=== PATIENT | male | born 1950 | race Caucasian/White ===

== ENCOUNTER 2019-06-27 18:16 | Inpatient (IN) | payer MEDICARE, MEDICAID ==
[2019-06-29 00:40] VITALS: BP 146/84
[2019-06-29] MEDS ORDERED: Magnesium Hydroxide (MOM) 30 mL UDC PO PRN (00:41)
[2019-06-29] MEDS ORDERED: Maalox 30 mL Cup PO PRN (00:41)
--- NOTE | 2019-06-29 06:47 | Psychiatric Evaluation ---
DATE OF SERVICE: AGE: 69. SEX: Male. PHYSICIAN: Dr. Sumner. CHIEF COMPLAINT: Striking odd behavior. HISTORY OF PRESENT ILLNESS: The patient is a 69-year-old male with history of schizophrenia. The patient has been agitated and aggressive with the staff in [facility] where he lives and has been striking out and staff has been having difficulty redirecting him. Also, has been easily agitated and restless. Also, has been suspicious and paranoid. The patient is still in angry mood and agitated and difficulty redirecting him. PAST PSYCHIATRIC HISTORY: The patient has a history of schizophrenia. PAST MEDICAL HISTORY: The patient has history of type 2 diabetes mellitus, essential hypertension, muscle weakness and wasting, hyperlipidemia, cataract. SOCIAL HISTORY: The patient lives in [facility]. No known alcohol or drug use. ALLERGIES: No known allergies. MENTAL STATUS EXAMINATION: The patient appears older than his stated age. Irritable mood. Anxious. Easily agitated. The patient denies any hallucinations, but severely paranoid and delusional. The patient denies suicidal or homicidal ideations, but the patient has striking out behavior and easily agitated. The patient is alert and oriented to time, place, person and situation. Intact immediate, recent and remote memories. Poor insight and he does not know why he is in the hospital. Poor judgment and he was hitting and striking out at staff in the facility. Seems to be of average intelligence based on his verbal ability. ASSESSMENT: PRIMARY DIAGNOSES: Schizophrenic disorder, unspecified. Rule out schizoaffective disorder. MEDICAL DIAGNOSES: 1. Type 2 diabetes mellitus. 2. Hypertension. 3. Hyperlipidemia. TREATMENT PLAN: We will monitor the patient's behavior and condition closely. We will start individual as well as milieu psychotherapy. We will monitor psychotropic medications. ESTIMATED LENGTH OF STAY: 5-7 days. PATIENT'S STRENGTHS AND WEAKNESSES: The patient has supportive staff in the facility and he seems to be in relatively fair health. Weaknesses are his poor impulse control. AFTER DISCHARGE PLAN: Outpatient treatment and followup will continue as an outpatient. CRITERIA FOR DISCHARGE: The patient will not be aggressive and have better impulse control. [facility]# [id number]
[2019-06-29] MEDS: Multivitamin Tab PO SCH (08:55)
[2019-06-29] MEDS: Benztropine 1 MG TAB PO SCH ×2 (08:55→17:06)
--- NOTE | 2019-06-29 20:42 | History & Physical ---
ADMIT DATE: HISTORY OF PRESENT ILLNESS: The patient is a 69-year-old male with long history of hyperlipidemia, dementia, psychosis, admitted to [facility] under Dr. Sumner's service. The patient denies chest pain, shortness of breath, nausea, vomiting, fever or chills. PAST MEDICAL HISTORY: Significant for hyperlipidemia, psychosis and dementia. PAST SURGICAL HISTORY: No recent surgery. ALLERGIES: None. MEDICATIONS: Follow admission reconciliation. SOCIAL HISTORY: No smoking, no alcohol, no drug. FAMILY HISTORY: Noncontributory. REVIEW OF SYSTEMS: RENAL SYSTEM: No history of chronic renal disorder. CARDIOVASCULAR SYSTEM: No coronary artery disease. ENDOCRINE SYSTEM: No diabetes or thyroid problem. GASTROINTESTINAL SYSTEM: No upper or lower gastrointestinal bleed. NEUROLOGICAL SYSTEM: No seizure disorder. SKELETOMUSCULAR SYSTEM: No muscular dystrophy. HEMATOLOGICAL SYSTEM: No bleeding tendencies. RESPIRATORY SYSTEM: No asthma. GENITOURINARY: No dysuria or hematuria. PHYSICAL EXAMINATION: GENERAL: She is awake, alert. VITAL SIGNS: Temperature 97.4, heart rate 67, blood pressure 124/68. HEENT: Her pupils reacting equal to light and accommodation. Sclerae clear. NECK: Supple. Negative for lymphadenopathy, JVD or bruit. CHEST: Entry of air bilaterally normal. No rhonchi or wheezing. HEART: S1, S2 normal. No gallop rhythm. ABDOMEN: Soft, bowel sounds positive. EXTREMITIES: No edema. BACK: Normal vertebra. GENITALIA AND RECTAL: No complaint done by primary physician. SKIN: Intact. NEUROLOGIC: He is awake, alert, mildly confused. Cranial nerve 1: The patient is able to smell different odor. Cranial nerve 2: The patient is able to read printed page. Cranial nerve 3: The patient is able to move eyeball upward and outward. Cranial nerve 4: The patient is able to move eyeball inward and downward. Cranial nerve 5: The patient able to clench teeth, has normal sensation to forehead. Cranial nerve 6: The patient is able to move eyeball lateral on both sides. Cranial nerve 7: The patient is able to move eyebrow upwards on both sides. Cranial nerve 8: The patient able to hear finger rubs on both sides. Cranial nerve 9: The patient has a normal gag reflex. Cranial nerve 10: The patient able to move soft palate upward on each side. Cranial nerve 11: The patient able to shrink shoulder on both sides. Cranial nerve 12: The patient able to stick tongue straight. Motor system examination within normal limits. Deep tendon reflexes within normal limits. Coordination of muscle within normal limits. Sensory system, the patient has a normal pain, touch, position of the upper extremities. Gait is stable. ASSESSMENT: 1. Hyperlipidemia. 2. Dementia. 3. Psychosis. PLAN: The patient in the hospital under Dr. Sumner's service. Problem addressed during this hospitalization is psychosis. Medical problem addressed at discharge, hyperlipidemia. The patient is medically stable for activity. Thank you, Dr. Sumner for asking me to see your patient. The patient will follow up with primary physician upon discharge. The patient is a full code. JOB# [id number]
[2019-06-30] MEDS: Benztropine 1 MG TAB PO SCH ×2 (08:29→16:13)
[2019-06-30] MEDS: Multivitamin Tab PO SCH (08:29)
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
--- NOTE | 2019-06-30 18:17 | Internal Medicine Prog Note ---
Internal Medicine Subjective - Subjective Service Date: 06/30/19 Patient seen and examined:: without staff (HE IS DOING WELL) Patient is:: awake, verbal, ambulating, talking, confused Per staff patient has:: no adverse event, eating well, confused Internal Medicine Objective - Physical Exam Vitals and I&O: Vital Signs Temp 97.2 F 06/30/19 14:00 Pulse 84 06/30/19 14:00 Resp 20 06/30/19 14:00 BP 137/52 06/30/19 14:00 Pulse Ox 97 06/30/19 14:00 Intake & Output 06/29/19 06/30/19 06/30/19 18:59 06:59 18:59 Intake Total 120 Balance 120 Intake: Oral 120 Other: # Voids 1 # Bowel Movements 0 Active Medications: Current Medications Acetaminophen (Tylenol) 650 mg PO Q4H PRN PRN Reason: Pain (Mild 1-3) Stop: 08/28/19 00:40 Al Hydrox/Mg Hydrox/Simethicone (Maalox) 30 ml PO Q4HR PRN PRN Reason: GI DISTRESS Stop: 08/28/19 00:40 Aspirin (Ecotrin) 81 mg PO DAILY [facility] Stop: 08/28/19 08:59 Last Admin: 06/30/19 08:29 Dose: 81 mg Benztropine Mesylate (Cogentin) 1 mg PO BID [facility] Stop: 08/28/19 08:59 Last Admin: 06/30/19 16:13 Dose: 1 mg Donepezil HCl (Aricept) 10 mg PO HS [facility] Stop: 08/28/19 20:59 Last Admin: 06/29/19 20:57 Dose: 10 mg Lorazepam (Ativan) 0.5 mg PO Q4HR PRN; Protocol PRN Reason: Anxiety Stop: 07/29/19 00:40 Last Admin: 06/30/19 13:06 Dose: 0.5 mg Magnesium Hydroxide (Milk Of Magnesia) 30 ml PO HS PRN PRN Reason: Constipation Memantine (Namenda) 5 mg PO DAILY [facility] Stop: 08/28/19 08:59 Last Admin: 06/30/19 08:29 Dose: 5 mg Multivitamins/Vitamin C (Theragran) 1 tab PO DAILY [facility] Stop: 08/28/19 08:59 Last Admin: 06/30/19 08:29 Dose: 1 tab Olanzapine (Zyprexa) 2.5 mg PO BID [facility]; Protocol Stop: 08/29/19 08:59 Last Admin: 06/30/19 16:13 Dose: 2.5 mg Simvastatin (Zocor) 20 mg PO HS [facility]; Protocol Stop: 08/28/19 20:59 Last Admin: 06/29/19 20:56 Dose: 20 mg Valproate Sodium (Depakene) 500 mg PO BID [facility]; Protocol Stop: 08/29/19 08:59 Last Admin: 06/30/19 16:13 Dose: 500 mg Zolpidem Tartrate (Ambien) 5 mg PO HS PRN PRN Reason: Insomnia Stop: 08/28/19 00:40 Last Admin: 06/29/19 21:55 Dose: 5 mg General: demented HEENT: NC/AT, PERRLA, EOMI, anicteric sclerae, throat clear Neck: Supple, No JVD, No thyromegaly, +2 carotid pulse wo bruit, No LAD Lungs: CTAB Cardiovascular: RRR, Normal S1, Normal S2, without murmur Abdomen: soft, non-tender, non-distended Extremities: clear Neurological: no change Internal Medicine Assmt/Plan - Assessment Assessment: 1.HYPERLIPIDEMIA. 2.DEMENTIA. 3.PSYCHOSIS - Plan Plan: CONTINUE ON CURRENT MEDICATION AND DIET
[2019-07-01] MEDS: Multivitamin Tab PO SCH (08:51)
[2019-07-01] MEDS: Benztropine 1 MG TAB PO SCH ×2 (08:52→16:48)
--- NOTE | 2019-07-01 15:03 | General Progress Note ---
Subjective - Review of Systems Service Date: 07/01/19 Subjective: resting comfortably no distress Objective - Physical Exam Vitals and I&O: Vital Signs Temp 98.3 F 07/01/19 14:20 Pulse 60 07/01/19 14:20 Resp 20 07/01/19 14:20 BP 108/51 07/01/19 14:20 Pulse Ox 91 07/01/19 14:20 Intake & Output 06/30/19 07/01/19 07/01/19 18:59 06:59 18:59 Intake Total 1000 480 Balance 1000 480 Intake: Oral 1000 480 Other: # Voids 3 1 # Bowel Movements 1 Active Medications: Current Medications Acetaminophen (Tylenol) 650 mg PO Q4H PRN PRN Reason: Pain (Mild 1-3) Stop: 08/28/19 00:40 Al Hydrox/Mg Hydrox/Simethicone (Maalox) 30 ml PO Q4HR PRN PRN Reason: GI DISTRESS Stop: 08/28/19 00:40 Aspirin (Ecotrin) 81 mg PO DAILY [facility] Stop: 08/28/19 08:59 Last Admin: 07/01/19 08:51 Dose: 81 mg Benztropine Mesylate (Cogentin) 1 mg PO BID [facility] Stop: 08/28/19 08:59 Last Admin: 07/01/19 08:52 Dose: 1 mg Donepezil HCl (Aricept) 10 mg PO HS [facility] Stop: 08/28/19 20:59 Last Admin: 06/30/19 20:55 Dose: 10 mg Lorazepam (Ativan) 0.5 mg PO Q4HR PRN; Protocol PRN Reason: Anxiety Stop: 07/29/19 00:40 Last Admin: 07/01/19 08:52 Dose: 0.5 mg Magnesium Hydroxide (Milk Of Magnesia) 30 ml PO HS PRN PRN Reason: Constipation Memantine (Namenda) 5 mg PO DAILY [facility] Stop: 08/28/19 08:59 Last Admin: 07/01/19 08:52 Dose: 5 mg Multivitamins/Vitamin C (Theragran) 1 tab PO DAILY [facility] Stop: 08/28/19 08:59 Last Admin: 07/01/19 08:51 Dose: 1 tab Olanzapine (Zyprexa) 2.5 mg PO BID [facility]; Protocol Stop: 08/29/19 08:59 Last Admin: 07/01/19 08:51 Dose: 2.5 mg Simvastatin (Zocor) 20 mg PO HS [facility]; Protocol Stop: 08/28/19 20:59 Last Admin: 06/30/19 20:55 Dose: 20 mg Valproate Sodium (Depakene) 500 mg PO BID [facility]; Protocol Stop: 08/29/19 08:59 Last Admin: 07/01/19 08:51 Dose: 500 mg Zolpidem Tartrate (Ambien) 5 mg PO HS PRN PRN Reason: Insomnia Stop: 08/28/19 00:40 Last Admin: 06/30/19 20:55 Dose: 5 mg General: No acute distress HEENT: Atraumatic, PERRLA Neck: Supple, JVD Cardiovascular: Regular rate, Normal S1, Normal S2 Lungs: Clear to auscultation Abdomen: Bowel sounds Assessment/Plan - Assessment Assessment: 1.HYPERLIPIDEMIA. 2.DEMENTIA. 3.PSYCHOSIS - Plan Plan: continue current treatment Nutritional Asmnt/Malnutr-PDOC - Dietary Evaluation Malnutrition Findings (Please click <Entered> for more info): Nutritional Asmnt/Malnutrition Start: 07/01/19 09: 03 Text: Status: Complete Freq: Protocol: Document 07/01/19 09:03 [facility] (Rec: 07/01/19 09:18 [facility] SABA- FNS1) Nutritional Asmnt/Malnutrition Patient General Information Nutritional Screening Moderate Risk Diagnosis Psychosis Pertinent Medical Hx/Surgical Hx Hyperlipidemia, dementia, psychosis. Subjective Information Current diet order provides 2230 kcal, 107gm protein and patient is eating ~75% of meals, eating ~1650kcal, 80gm protein meeting 100% of estimated nutrient needs. Tolerating current diet order. Current Diet Order/ Nutrition Support Cardiac, no added sodium Patient / S.O Not Indicated Pertinent Medications maalox, MOM, Theragran Pertinent Labs No current labs Nutritional Hx/Data Height 1.65 m Height (Calculated Centimeters) 165.1 Current Weight (lbs) 71.214 kg Weight (Calculated Kilograms) 71.2 Weight (Calculated Grams) 11199.0 [place] Body Weight 136 % [place] Body Weight 115 Body Mass Index (BMI) 26.1 Recent Weight Change No Weight Status Overweight GI Symptoms GI Symptoms None Last BM 06/30 x 1 Difficult in: None Food Allergies No Cultural/Ethnic/Restoration Belief none indicated Usual diet at home regular Skin Integrity/Comment: Varinder 22, Intact Current %PO Good (75-100%) Estimated Nutritional Goals BEE in Kcals: Using Current wt Calories/Kcals/Kg 64.2kg 25-30 kcal/kg Kcals Calculated ~7954-3192 kcal/day Protein: Using Current wt Protein g/kgm/kg Protein Calculated ~65gm/day Fluid: ml ~9889-2709 ml/day Nutritional Problem No current Nutrition Prob Problem No nutrition diagnosis at this time Intervention/Recommendation Comments 1. Continue current diet as tolerated by patient. Expected Outcomes/Goals Expected Outcomes/Goals Adequate nutrition to meet >75 % estimated needs, improved labs, skin remains intact, weight maintenance or trend toward ideal body weight. F/U LR 07/07-10
--- NOTE | 2019-07-02 06:42 | Psych Progress Note ---
Psych Progress Note - Intro Date of Progress Note: 07/01/19 - Assessment Assessment: Patient interviewed, caes discussed with staff, chart and records were reviewed. Patient is depressed withdrawn with episodes of anger and striking out and agitation. He refused interview this morning, awake in bed, but due to level of irritability did not want to engage. No side effects noted. - Vitals, I&O Vitals: Vital Signs - 24 hr 07/01/19 07/01/19 07/01/19 14:20 20:00 20:50 Temp 98.3 F 99.5 F HR 60 77 RR 20 20 BP 108/51 O2 Sat % 91 07/01/19 20:52 Temp 99.5 F HR 77 RR 20 BP 106/57 O2 Sat % 95 - Objective Psych General Appearance: Report: Disheveled Psych Behavior: Report: Uncooperative, Agitated Psych Speech: Report: Mumbled Psych Mood: Report: Angry Psych Affect: Report: Labile Psych Thought Process: Report: Loose Associations Psych Cognition: Report: Confused Psych Insight: Report: Impaired Psych Judgement: Report: Impaired - Plan [facility], will observe for behaviors and medication side effects. - Review of Relevant Data Review of Relevant Data: I have reviewed the following items and time caleb (where applicable) has been applied. - Medications Current Medications: Current Medications Acetaminophen (Tylenol) 650 mg PO Q4H PRN PRN Reason: Pain (Mild 1-3) Stop: 08/28/19 00:40 Al Hydrox/Mg Hydrox/Simethicone (Maalox) 30 ml PO Q4HR PRN PRN Reason: GI DISTRESS Stop: 08/28/19 00:40 Aspirin (Ecotrin) 81 mg PO DAILY [facility] Stop: 08/28/19 08:59 Last Admin: 07/01/19 08:51 Dose: 81 mg Benztropine Mesylate (Cogentin) 1 mg PO BID [facility] Stop: 08/28/19 08:59 Last Admin: 07/01/19 16:48 Dose: 1 mg Donepezil HCl (Aricept) 10 mg PO HS [facility] Stop: 08/28/19 20:59 Last Admin: 07/01/19 20:32 Dose: 10 mg Lorazepam (Ativan) 0.5 mg PO Q4HR PRN; Protocol PRN Reason: Anxiety Stop: 07/29/19 00:40 Last Admin: 07/01/19 16:30 Dose: 0.5 mg Magnesium Hydroxide (Milk Of Magnesia) 30 ml PO HS PRN PRN Reason: Constipation Memantine (Namenda) 5 mg PO DAILY [facility] Stop: 08/28/19 08:59 Last Admin: 07/01/19 08:52 Dose: 5 mg Multivitamins/Vitamin C (Theragran) 1 tab PO DAILY [facility] Stop: 08/28/19 08:59 Last Admin: 07/01/19 08:51 Dose: 1 tab Olanzapine (Zyprexa) 2.5 mg PO BID [facility]; Protocol Stop: 08/29/19 08:59 Last Admin: 07/01/19 16:48 Dose: 2.5 mg Simvastatin (Zocor) 20 mg PO HS [facility]; Protocol Stop: 08/28/19 20:59 Last Admin: 07/01/19 20:33 Dose: 20 mg Valproate Sodium (Depakene) 500 mg PO BID [facility]; Protocol Stop: 08/29/19 08:59 Last Admin: 07/01/19 16:48 Dose: 500 mg Zolpidem Tartrate (Ambien) 5 mg PO HS PRN PRN Reason: Insomnia Stop: 08/28/19 00:40 Last Admin: 07/01/19 20:33 Dose: 5 mg
[2019-07-02] MEDS: Multivitamin Tab PO SCH (08:39)
[2019-07-02] MEDS: Benztropine 1 MG TAB PO SCH ×2 (08:40→16:53)
--- NOTE | 2019-07-02 14:14 | General Progress Note ---
Subjective - Review of Systems Service Date: 07/02/19 Subjective: resting comfortably no distress Objective - Physical Exam Vitals and I&O: Vital Signs Temp 99.5 F 07/01/19 20:52 Pulse 77 07/01/19 20:52 Resp 20 07/01/19 20:52 BP 106/57 07/01/19 20:52 Pulse Ox 95 07/01/19 20:52 Intake & Output 07/01/19 07/02/19 07/02/19 18:59 06:59 18:59 Intake Total 600 240 Balance 600 240 Intake: Oral 600 240 Other: # Voids 4 2 # Bowel Movements 0 Active Medications: Current Medications Acetaminophen (Tylenol) 650 mg PO Q4H PRN PRN Reason: Pain (Mild 1-3) Stop: 08/28/19 00:40 Al Hydrox/Mg Hydrox/Simethicone (Maalox) 30 ml PO Q4HR PRN PRN Reason: GI DISTRESS Stop: 08/28/19 00:40 Aspirin (Ecotrin) 81 mg PO DAILY [facility] Stop: 08/28/19 08:59 Last Admin: 07/02/19 08:40 Dose: 81 mg Benztropine Mesylate (Cogentin) 1 mg PO BID [facility] Stop: 08/28/19 08:59 Last Admin: 07/02/19 08:40 Dose: 1 mg Donepezil HCl (Aricept) 10 mg PO HS [facility] Stop: 08/28/19 20:59 Last Admin: 07/01/19 20:32 Dose: 10 mg Lorazepam (Ativan) 0.5 mg PO Q4HR PRN; Protocol PRN Reason: Anxiety Stop: 07/29/19 00:40 Last Admin: 07/01/19 16:30 Dose: 0.5 mg Magnesium Hydroxide (Milk Of Magnesia) 30 ml PO HS PRN PRN Reason: Constipation Memantine (Namenda) 5 mg PO DAILY [facility] Stop: 08/28/19 08:59 Last Admin: 07/02/19 08:39 Dose: 5 mg Multivitamins/Vitamin C (Theragran) 1 tab PO DAILY [facility] Stop: 08/28/19 08:59 Last Admin: 07/02/19 08:39 Dose: 1 tab Olanzapine (Zyprexa) 2.5 mg PO BID [facility]; Protocol Stop: 08/29/19 08:59 Last Admin: 07/02/19 08:39 Dose: 2.5 mg Simvastatin (Zocor) 20 mg PO HS [facility]; Protocol Stop: 08/28/19 20:59 Last Admin: 07/01/19 20:33 Dose: 20 mg Valproate Sodium (Depakene) 500 mg PO BID [facility]; Protocol Stop: 08/29/19 08:59 Last Admin: 07/02/19 08:39 Dose: 500 mg Zolpidem Tartrate (Ambien) 5 mg PO HS PRN PRN Reason: Insomnia Stop: 08/28/19 00:40 Last Admin: 07/01/19 20:33 Dose: 5 mg General: No acute distress HEENT: Atraumatic, PERRLA Neck: Supple, JVD Cardiovascular: Regular rate, Normal S1, Normal S2 Lungs: Clear to auscultation Abdomen: Bowel sounds Assessment/Plan - Assessment Assessment: 1.HYPERLIPIDEMIA. 2.DEMENTIA. 3.PSYCHOSIS - Plan Plan: continue current treatment Nutritional Asmnt/Malnutr-PDOC - Dietary Evaluation Malnutrition Findings (Please click <Entered> for more info): Nutritional Asmnt/Malnutrition Start: 07/01/19 09: 03 Text: Status: Complete Freq: Protocol: Document 07/01/19 09:03 [facility] (Rec: 07/01/19 09:18 [facility] SABA- FNS1) Nutritional Asmnt/Malnutrition Patient General Information Nutritional Screening Moderate Risk Diagnosis Psychosis Pertinent Medical Hx/Surgical Hx Hyperlipidemia, dementia, psychosis. Subjective Information Current diet order provides 2230 kcal, 107gm protein and patient is eating ~75% of meals, eating ~1650kcal, 80gm protein meeting 100% of estimated nutrient needs. Tolerating current diet order. Current Diet Order/ Nutrition Support Cardiac, no added sodium Patient / S.O Not Indicated Pertinent Medications maalox, MOM, Theragran Pertinent Labs No current labs Nutritional Hx/Data Height 1.65 m Height (Calculated Centimeters) 165.1 Current Weight (lbs) 71.214 kg Weight (Calculated Kilograms) 71.2 Weight (Calculated Grams) 48882.0 [place] Body Weight 136 % [place] Body Weight 115 Body Mass Index (BMI) 26.1 Recent Weight Change No Weight Status Overweight GI Symptoms GI Symptoms None Last BM 06/30 x 1 Difficult in: None Food Allergies No Cultural/Ethnic/Scientologist Belief none indicated Usual diet at home regular Skin Integrity/Comment: Varinder 22, Intact Current %PO Good (75-100%) Estimated Nutritional Goals BEE in Kcals: Using Current wt Calories/Kcals/Kg 64.2kg 25-30 kcal/kg Kcals Calculated ~6965-0049 kcal/day Protein: Using Current wt Protein g/kgm/kg Protein Calculated ~65gm/day Fluid: ml ~0553-5040 ml/day Nutritional Problem No current Nutrition Prob Problem No nutrition diagnosis at this time Intervention/Recommendation Comments 1. Continue current diet as tolerated by patient. Expected Outcomes/Goals Expected Outcomes/Goals Adequate nutrition to meet >75 % estimated needs, improved labs, skin remains intact, weight maintenance or trend toward ideal body weight. F/U LR 07/07-10
--- NOTE | 2019-07-03 06:45 | Psych Progress Note ---
Psych Progress Note - Intro Date of Progress Note: 07/02/19 - Assessment Assessment: Patient interviewed, caes discussed with staff, chart and records were reviewed. Patient is depressed withdrawn with episodes of anger and striking out and agitation. He refused interview this morning, awake in bed, but due to level of irritability did not want to engage again like yesterday. No side effects noted. - Vitals, I&O Vitals: Vital Signs - 24 hr 07/02/19 07/02/19 07/02/19 14:35 19:52 20:00 Temp 97.7 F 98 F HR 73 103 RR 18 19 19 BP 109/56 107/71 O2 Sat % 94 95 07/03/19 05:56 Temp 98.5 F HR 85 RR 19 BP 104/61 O2 Sat % 92 - Objective Psych General Appearance: Report: Disheveled Psych Behavior: Report: Uncooperative, Agitated Psych Speech: Report: Mumbled Psych Mood: Report: Angry Psych Affect: Report: Labile Psych Thought Process: Report: Loose Associations Psych Cognition: Report: Confused Psych Insight: Report: Impaired Psych Judgement: Report: Impaired - Plan Plan: continue current treamtent plan, will observe for behaviors and medication side effects. - Review of Relevant Data Review of Relevant Data: I have reviewed the following items and time caleb (where applicable) has been applied. - Medications Current Medications: Current Medications Acetaminophen (Tylenol) 650 mg PO Q4H PRN PRN Reason: Pain (Mild 1-3) Stop: 08/28/19 00:40 Al Hydrox/Mg Hydrox/Simethicone (Maalox) 30 ml PO Q4HR PRN PRN Reason: GI DISTRESS Stop: 08/28/19 00:40 Aspirin (Ecotrin) 81 mg PO DAILY [facility] Stop: 08/28/19 08:59 Last Admin: 07/02/19 08:40 Dose: 81 mg Benztropine Mesylate (Cogentin) 1 mg PO BID [facility] Stop: 08/28/19 08:59 Last Admin: 07/02/19 16:53 Dose: 1 mg Donepezil HCl (Aricept) 10 mg PO HS [facility] Stop: 08/28/19 20:59 Last Admin: 07/02/19 21:01 Dose: 10 mg Lorazepam (Ativan) 0.5 mg PO Q4HR PRN; Protocol PRN Reason: Anxiety Stop: 07/29/19 00:40 Last Admin: 07/01/19 16:30 Dose: 0.5 mg Magnesium Hydroxide (Milk Of Magnesia) 30 ml PO HS PRN PRN Reason: Constipation Memantine (Namenda) 5 mg PO DAILY [facility] Stop: 08/28/19 08:59 Last Admin: 07/02/19 08:39 Dose: 5 mg Multivitamins/Vitamin C (Theragran) 1 tab PO DAILY [facility] Stop: 08/28/19 08:59 Last Admin: 07/02/19 08:39 Dose: 1 tab Olanzapine (Zyprexa) 2.5 mg PO BID [facility]; Protocol Stop: 08/29/19 08:59 Last Admin: 07/02/19 16:53 Dose: 2.5 mg Simvastatin (Zocor) 20 mg PO HS [facility]; Protocol Stop: 08/28/19 20:59 Last Admin: 07/02/19 21:01 Dose: 20 mg Valproate Sodium (Depakene) 500 mg PO BID [facility]; Protocol Stop: 08/29/19 08:59 Last Admin: 07/02/19 16:53 Dose: 500 mg Zolpidem Tartrate (Ambien) 5 mg PO HS PRN PRN Reason: Insomnia Stop: 08/28/19 00:40 Last Admin: 07/02/19 21:01 Dose: 5 mg
[2019-07-03] MEDS: Multivitamin Tab PO SCH (08:13)
[2019-07-03] MEDS: Benztropine 1 MG TAB PO SCH ×2 (08:14→16:23)
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
--- NOTE | 2019-07-03 15:24 | Internal Medicine Prog Note ---
Internal Medicine Subjective - Subjective Service Date: 07/03/19 Patient seen and examined:: without staff (HE FEELS BETTER) Patient is:: awake, verbal, ambulating, talking, confused Per staff patient has:: no adverse event, eating well, confused Internal Medicine Objective - Physical Exam Vitals and I&O: Vital Signs Temp 98.5 F 07/03/19 05:56 Pulse 85 07/03/19 05:56 Resp 17 07/03/19 08:00 BP 104/61 07/03/19 05:56 Pulse Ox 92 07/03/19 05:56 Intake & Output 07/02/19 07/03/19 07/03/19 18:59 06:59 18:59 Intake Total 850 300 Balance 850 300 Intake: Oral 850 300 Other: # Voids 3 1 # Bowel Movements 1 0 Active Medications: Current Medications Acetaminophen (Tylenol) 650 mg PO Q4H PRN PRN Reason: Pain (Mild 1-3) Stop: 08/28/19 00:40 Al Hydrox/Mg Hydrox/Simethicone (Maalox) 30 ml PO Q4HR PRN PRN Reason: GI DISTRESS Stop: 08/28/19 00:40 Aspirin (Ecotrin) 81 mg PO DAILY ALESHIA Stop: 08/28/19 08:59 Last Admin: 07/03/19 08:13 Dose: 81 mg Benztropine Mesylate (Cogentin) 1 mg PO BID ALESHIA Stop: 08/28/19 08:59 Last Admin: 07/03/19 08:14 Dose: 1 mg Donepezil HCl (Aricept) 10 mg PO HS ALESHIA Stop: 08/28/19 20:59 Last Admin: 07/02/19 21:01 Dose: 10 mg Lorazepam (Ativan) 0.5 mg PO Q4HR PRN; Protocol PRN Reason: Anxiety Stop: 07/29/19 00:40 Last Admin: 07/01/19 16:30 Dose: 0.5 mg Magnesium Hydroxide (Milk Of Magnesia) 30 ml PO HS PRN PRN Reason: Constipation Memantine (Namenda) 5 mg PO DAILY ALESHIA Stop: 08/28/19 08:59 Last Admin: 07/03/19 08:13 Dose: 5 mg Multivitamins/Vitamin C (Theragran) 1 tab PO DAILY ALESHIA Stop: 08/28/19 08:59 Last Admin: 07/03/19 08:13 Dose: 1 tab Olanzapine (Zyprexa) 2.5 mg PO BID ALESHIA; Protocol Stop: 08/29/19 08:59 Last Admin: 07/03/19 08:14 Dose: 2.5 mg Simvastatin (Zocor) 20 mg PO HS ALESHIA; Protocol Stop: 08/28/19 20:59 Last Admin: 07/02/19 21:01 Dose: 20 mg Valproate Sodium (Depakene) 500 mg PO BID ALESHIA; Protocol Stop: 08/29/19 08:59 Last Admin: 07/03/19 08:14 Dose: 500 mg Zolpidem Tartrate (Ambien) 5 mg PO HS PRN PRN Reason: Insomnia Stop: 08/28/19 00:40 Last Admin: 07/02/19 21:01 Dose: 5 mg General: demented HEENT: NC/AT, PERRLA, EOMI, anicteric sclerae, throat clear Neck: Supple, No JVD, No thyromegaly, +2 carotid pulse wo bruit, No LAD Lungs: CTAB Cardiovascular: RRR, Normal S1, Normal S2, without murmur Abdomen: soft, non-tender, non-distended Extremities: clear Neurological: no change Internal Medicine Assmt/Plan - Assessment Assessment: 1.HYPERLIPIDEMIA. 2.DEMENTIA. 3.PSYCHOSIS - Plan Plan: CONTINUE ON CURRENT MEDICATION AND DIET Nutritional Asmnt/Malnutr-PDOC - Dietary Evaluation Malnutrition Findings (Please click <Entered> for more info): Nutritional Asmnt/Malnutrition Start: 07/01/19 09: 03 Text: Status: Complete Freq: Protocol: Document 07/01/19 09:03 TRINITY (Rec: 07/01/19 09:18 TRINITY SABA- [id number]) Nutritional Asmnt/Malnutrition Patient General Information Nutritional Screening Moderate Risk Diagnosis Psychosis Pertinent Medical Hx/Surgical Hx Hyperlipidemia, dementia, psychosis. Subjective Information Current diet order provides 2230 kcal, 107gm protein and patient is eating ~75% of meals, eating ~1650kcal, 80gm protein meeting 100% of estimated nutrient needs. Tolerating current diet order. Current Diet Order/ Nutrition Support Cardiac, no added sodium Patient / S.O Not Indicated Pertinent Medications maalox, MOM, Theragran Pertinent Labs No current labs Nutritional Hx/Data Height 1.65 m Height (Calculated Centimeters) 165.1 Current Weight (lbs) 71.214 kg Weight (Calculated Kilograms) 71.2 Weight (Calculated Grams) 17557.0 Minto Body Weight 136 % Minto Body Weight 115 Body Mass Index (BMI) 26.1 Recent Weight Change No Weight Status Overweight GI Symptoms GI Symptoms None Last BM 06/30 x 1 Difficult in: None Food Allergies No Cultural/Ethnic/Mosque Belief none indicated Usual diet at home regular Skin Integrity/Comment: Varinder 22, Intact Current %PO Good (75-100%) Estimated Nutritional Goals BEE in Kcals: Using Current wt Calories/Kcals/Kg 64.2kg 25-30 kcal/kg Kcals Calculated ~1555-6186 kcal/day Protein: Using Current wt Protein g/kgm/kg Protein Calculated ~65gm/day Fluid: ml ~9861-4772 ml/day Nutritional Problem No current Nutrition Prob Problem No nutrition diagnosis at this time Intervention/Recommendation Comments 1. Continue current diet as tolerated by patient. Expected Outcomes/Goals Expected Outcomes/Goals Adequate nutrition to meet >75 % estimated needs, improved labs, skin remains intact, weight maintenance or trend toward ideal body weight. F/U LR 07/07-
--- NOTE | 2019-07-04 07:57 | Discharge Summary ---
DATE OF DISCHARGE: 07/04/2019 PSYCHIATRIC DISCHARGE SUMMARY AGE: 69. SEX: Male. PHYSICIAN: Dr. Sumner. PRIMARY DIAGNOSIS: Schizophrenic disorder, unspecified. MEDICAL DIAGNOSES: 1. Diabetes mellitus type 2. 2. Hypertension. 3. Hyperlipidemia. REASON FOR HOSPITALIZATION: The patient has history of schizophrenia and he was admitted to the hospital because of increased agitation and aggressive behavior with the staff in [facility]. HOSPITAL COURSE: The patient continued to be agitated in the beginning of his hospitalization. The patient was given Zyprexa in a dose of 2.5 mg twice a day. Also, Aricept 10 mg at bedtime and Namenda 5 mg every day. Gradually, patient's affect was brighter. The patient was less agitated and less irritable. The patient did not have any issues with behavior, especially also Depakote was added in a dose of 500 mg twice a day. Depakote blood level was ordered, but results not back. The patient was easier to follow directions and he was discharged from the hospital. Physical exam of the patient shows no major medical issues and as mentioned under final diagnosis. AFTER DISCHARGE PLANS: The patient discharged from the hospital and returned to [facility] with plans for followup there. EXPECTED OUTCOME AFTER DISCHARGE: Fair if the patient continues his outpatient treatment and follow up with discharge plans. JOB# [id number]
[2019-07-04] MEDS: Benztropine 1 MG TAB PO SCH ×2 (08:56→16:52)
[2019-07-04] MEDS: Multivitamin Tab PO SCH (08:56)
== END 2019-07-04 19:15 | DRG 885 ==
LOC: GERO 06-28 22:55
PROVIDERS: ADMIT Psychiatry & Neurology Psychiatry; ATTEND Psychiatry & Neurology Psychiatry
DX: F20.9 Schizophrenia, unspecified (principal); E11.9 Type 2 diabetes mellitus without complications; I10 Essential (primary) hypertension; F03.90 Unspecified dementia, unspecified severity, without behavioral disturbance, psychotic disturbance, mood disturbance, and anxiety; Z98.49 Cataract extraction status, unspecified eye
CPT/HCPCS: 83036-90; G0410; J7051; Z7610